=== PATIENT | male | born 1965 | race Caucasian/White ===

== ENCOUNTER 2018-05-15 23:12 | Inpatient (IN) | payer BC ==
[2018-05-16] MEDS ORDERED: ONDANSETRON 4 MG INJ IV (01:30)
[2018-05-16] MEDS: SOD CHLORIDE 0.9% 1,000 ML IV ×3 (02:23→20:30)
[2018-05-16] MEDS: CEFTRIAXONE 1 GM/50 ML (PMX) 50 ML IVPB (02:26)
[2018-05-16] MEDS: PANTOPRAZOLE (EC) 40 MG TAB PO (05:51)
[2018-05-16 06:46] LABS: ADD MAN DIFF? NO
[2018-05-16 06:47] LABS: WHITE BLOOD COUNT 4.2 10^3/ul (4.8-10.8)
[2018-05-16 06:47] LABS: BASOPHILS % 0.5 % (0.0-2.0); EOSINOPHILS # 0.1 10^3/ul (0.0-0.5); EOSINOPHILS % 2.9 % (0.0-7.0); HEMATOCRIT 28.8 % (42.0-52.0); HEMOGLOBIN 8.8 g/dl (14.0-18.0); LYMPHOCYTES # 1.1 10^3/ul (0.8-2.9); LYMPHOCYTES % 26.8 % (15.0-51.0); MEAN CORPUSCULAR HEMOGLOBIN 21.7 pg (29.0-33.0); MEAN CORPUSCULAR HGB CONC 30.6 g/dl (32.0-37.0); MEAN CORPUSCULAR VOLUME 70.9 fl (82.0-101.0); MEAN PLATELET VOLUME 10.3 fl (7.4-10.4); MONOCYTE # 0.5 10^3/ul (0.3-0.9); MONOCYTES % 12.4 % (0.0-11.0); NEUTROPHIL # 2.4 10^3/ul (1.6-7.5); NEUTROPHILS % 57.2 % (39.0-77.0); PLATELET COUNT 447 10^3/UL (140-415); RED BLOOD COUNT 4.06 10^6/ul (4.70-6.10); RED CELL DISTRIBUTION WIDTH 16.4 % (11.5-14.5)
[2018-05-16 07:22] LABS: ANION GAP 10 (5-13); BLOOD UREA NITROGEN 4 mg/dl (7-20); CALCIUM 8.5 mg/dl (8.4-10.2); CARBON DIOXIDE 25 mmol/L (21-31); CHLORIDE 101 mmol/L (97-110); CREATININE 0.52 mg/dl (0.61-1.24); Estimated GFR > 60 mL/min (>60); GLUCOSE 96 mg/dl (70-220); POTASSIUM 3.5 mmol/L (3.5-5.1); SODIUM 136 mmol/L (135-144)
[2018-05-16] MEDS: AZITHROMYCIN 500 MG in SOD CHLORIDE 0.9% 250 ML IVPB (08:18)
[2018-05-16] MEDS: CEFEPIME 1GM/50 ML (PMX) 50 ML IVPB ×2 (13:15→20:29)
[2018-05-16] MEDS: IOHEXOL 300MG/ML 150 ML BTL (16:14)
[2018-05-16] MEDS: SOD CHLORIDE 0.9% 100 ML ×2 (16:14→17:17)
[2018-05-16] MEDS: IOHEXOL 100 ML (17:18)
[2018-05-16] MEDS: ACETAMINOPHEN 325 MG TAB PO (20:37)
[2018-05-16] MEDS: GUAIFENESIN/DM 5ML CUP PO (20:46)
[2018-05-17] MEDS: PANTOPRAZOLE (EC) 40 MG TAB PO (05:22)
[2018-05-17 06:43] LABS: ADD MAN DIFF? NO
[2018-05-17 06:51] LABS: WHITE BLOOD COUNT 3.9 10^3/ul (4.8-10.8)
[2018-05-17 06:51] LABS: BASOPHILS % 0.8 % (0.0-2.0); EOSINOPHILS # 0.1 10^3/ul (0.0-0.5); EOSINOPHILS % 3.6 % (0.0-7.0); HEMATOCRIT 27.3 % (42.0-52.0); HEMOGLOBIN 8.3 g/dl (14.0-18.0); LYMPHOCYTES # 0.7 10^3/ul (0.8-2.9); LYMPHOCYTES % 17.8 % (15.0-51.0); MEAN CORPUSCULAR HEMOGLOBIN 21.7 pg (29.0-33.0); MEAN CORPUSCULAR HGB CONC 30.4 g/dl (32.0-37.0); MEAN CORPUSCULAR VOLUME 71.5 fl (82.0-101.0); MEAN PLATELET VOLUME 10.1 fl (7.4-10.4); MONOCYTE # 0.5 10^3/ul (0.3-0.9); MONOCYTES % 11.9 % (0.0-11.0); NEUTROPHIL # 2.5 10^3/ul (1.6-7.5); NEUTROPHILS % 65.6 % (39.0-77.0); PLATELET COUNT 498 10^3/UL (140-415); RED BLOOD COUNT 3.82 10^6/ul (4.70-6.10); RED CELL DISTRIBUTION WIDTH 16.5 % (11.5-14.5)
[2018-05-17 07:12] LABS: PHOSPHORUS 4.1 mg/dl (2.5-4.9)
[2018-05-17 07:12] LABS: CALCIUM 8.6 mg/dl (8.4-10.2)
[2018-05-17] MEDS: CEFEPIME 1GM/50 ML (PMX) 50 ML IVPB ×2 (08:47→20:55)
[2018-05-17] MEDS: AZITHROMYCIN 500 MG in SOD CHLORIDE 0.9% 250 ML IVPB (09:18)
[2018-05-17] MEDS: FUROSEMIDE 40 MG INJ IV (12:40)
[2018-05-17] MEDS: SOD CHLORIDE 0.9% 1,000 ML IV (15:24)
[2018-05-18] MEDS: PANTOPRAZOLE (EC) 40 MG TAB PO (05:30)
[2018-05-18 07:03] LABS: ADD MAN DIFF? NO
[2018-05-18 07:10] LABS: BASOPHILS % 0.8 % (0.0-2.0); EOSINOPHILS # 0.2 10^3/ul (0.0-0.5); EOSINOPHILS % 4.2 % (0.0-7.0); HEMATOCRIT 30.9 % (42.0-52.0); HEMOGLOBIN 9.1 g/dl (14.0-18.0); LYMPHOCYTES # 0.9 10^3/ul (0.8-2.9); LYMPHOCYTES % 24.8 % (15.0-51.0); MEAN CORPUSCULAR HEMOGLOBIN 21.3 pg (29.0-33.0); MEAN CORPUSCULAR HGB CONC 29.4 g/dl (32.0-37.0); MEAN CORPUSCULAR VOLUME 72.2 fl (82.0-101.0); MEAN PLATELET VOLUME 10.4 fl (7.4-10.4); MONOCYTE # 0.5 10^3/ul (0.3-0.9); MONOCYTES % 12.7 % (0.0-11.0); NEUTROPHIL # 2.2 10^3/ul (1.6-7.5); NEUTROPHILS % 57.2 % (39.0-77.0); PLATELET COUNT 556 10^3/UL (140-415); RED BLOOD COUNT 4.28 10^6/ul (4.70-6.10); RED CELL DISTRIBUTION WIDTH 16.6 % (11.5-14.5)
[2018-05-18 07:10] LABS: WHITE BLOOD COUNT 3.8 10^3/ul (4.8-10.8)
[2018-05-18 07:24] LABS: ANION GAP 6 (5-13); BLOOD UREA NITROGEN 5 mg/dl (7-20); CALCIUM 8.8 mg/dl (8.4-10.2); CARBON DIOXIDE 30 mmol/L (21-31); CHLORIDE 101 mmol/L (97-110); CREATININE 0.58 mg/dl (0.61-1.24); Estimated GFR > 60 mL/min (>60); GLUCOSE 91 mg/dl (70-220); PHOSPHORUS 4.4 mg/dl (2.5-4.9); POTASSIUM 3.7 mmol/L (3.5-5.1); SODIUM 137 mmol/L (135-144)
[2018-05-18] MEDS: AZITHROMYCIN 500 MG in SOD CHLORIDE 0.9% 250 ML IVPB (08:14)
[2018-05-18] MEDS: FUROSEMIDE 40 MG INJ IV (09:59)
[2018-05-18 10:21] LABS: ALANINE AMINOTRANSFERASE 15 IU/L (13-69); ALBUMIN 3.2 g/dl (3.3-4.9); ALKALINE PHOSPHATASE 61 IU/L (42-121); ASPARTATE AMINO TRANSFERASE 27 IU/L (15-46); TOTAL PROTEIN 7.3 g/dl (6.1-8.1)
[2018-05-18 11:46] LABS: INR 1.11; PROTIME 14.4 Sec (11.9-14.9); PT RATIO 1.1
[2018-05-18] MEDS: CEFEPIME 1GM/50 ML (PMX) 50 ML IVPB ×2 (11:56→21:30)
[2018-05-18] MEDS: FLUCONAZOLE 100 MG TAB PO (12:00)
[2018-05-18] MEDS: METOPROLOL 5 MG INJ IV (13:10)
[2018-05-18 15:22] LABS: ADD UMIC YES; UR ASCORBIC ACID NEGATIVE (NEGATIVE); UR BILIRUBIN (Dip) NEGATIVE (NEGATIVE); UR BLOOD (Dip) 1+ mg/dL (NEGATIVE); UR CLARITY CLEAR (CLEAR); UR COLOR STRAW (YELLOW); UR GLUCOSE (Dip) NEGATIVE (NEGATIVE); UR KETONES (Dip) NEGATIVE (NEGATIVE); UR LEUKOCYTE ESTERASE (Dip) NEGATIVE Leu/ul (NEGATIVE); UR NITRITE (Dip) NEGATIVE (NEGATIVE); UR RBC 0 /HPF (0-5); UR SPECIFIC GRAVITY (Dip) 1.004 (1.003-1.030); UR TOTAL PROTEIN (Dip) NEGATIVE (NEGATIVE); UR UROBILINOGEN (Dip) NEGATIVE (NEGATIVE); UR WBC 1 /HPF (0-5)
[2018-05-18] MEDS ORDERED: METOPROLOL 5 MG INJ IV (16:30)
[2018-05-18 16:34] LABS: B-TYPE NATRIURETIC PEPTIDE 34 PG/ML (0-125)
[2018-05-18 16:42] LABS: FREE T4 (FREE THYROXINE) 1.83 ng/dl (0.64-1.79)
[2018-05-18 16:56] LABS: THYROID STIMULATING HORMONE 0.985 MIU/L (0.465-4.680)
[2018-05-18 20:30] LABS: TROPONIN-I < 0.012 ng/ml (0.000-0.120)
[2018-05-18] MEDS: PROPRANOLOL 10 MG TAB PO ×2 (21:33→23:00)
[2018-05-19 01:46] LABS: TROPONIN-I < 0.012 ng/ml (0.000-0.120)
[2018-05-19] MEDS: PANTOPRAZOLE (EC) 40 MG TAB PO (05:25)
[2018-05-19 07:23] LABS: TROPONIN-I < 0.012 ng/ml (0.000-0.120)
[2018-05-19] MEDS: FLUCONAZOLE 100 MG TAB PO (08:05)
[2018-05-19] MEDS: PROPRANOLOL 10 MG TAB PO ×3 (08:06→20:46)
[2018-05-19] MEDS: FUROSEMIDE 40 MG INJ IV (08:07)
[2018-05-19] MEDS: AZITHROMYCIN 500 MG in SOD CHLORIDE 0.9% 250 ML IVPB (08:07)
[2018-05-19] MEDS: CEFEPIME 1GM/50 ML (PMX) 50 ML IVPB ×2 (08:07→20:46)
[2018-05-19] MEDS: SOD CHLORIDE 0.9% 500 ML IV ×2 (14:07→15:07)
[2018-05-19] MEDS: FLUDROCORTISONE 0.1 MG TAB PO (15:07)
[2018-05-20] MEDS: PANTOPRAZOLE (EC) 40 MG TAB PO (06:01)
[2018-05-20] MEDS: PROPRANOLOL 10 MG TAB PO (07:22)
[2018-05-20] MEDS: CEFEPIME 1GM/50 ML (PMX) 50 ML IVPB (07:45)
[2018-05-20] MEDS: FLUDROCORTISONE 0.1 MG TAB PO (07:45)
[2018-05-20] MEDS: AZITHROMYCIN 500 MG in SOD CHLORIDE 0.9% 250 ML IVPB (07:45)
[2018-05-20] MEDS: FLUCONAZOLE 100 MG TAB PO (07:45)
== END 2018-05-20 11:41 | disposition home or self-care (01) | DRG 871 ==
LOC: TEL 23:12
DX: A41.9 Sepsis, unspecified organism (principal); J18.9 Pneumonia, unspecified organism; K50.90 Crohn's disease, unspecified, without complications; R18.8 Other ascites; I47.1 Supraventricular tachycardia; J90 Pleural effusion, not elsewhere classified
CPT/HCPCS: 71045; 71275; 76705; 80048; 80076; 81001; 82310; 83735; 83880; 84100; 84439; 84443; 84484; 85025; 85610; 87070; 93005; 93306